=== PATIENT | female | born 1960 | race Two or more races ===

== ENCOUNTER 2017-11-26 22:09 | Emergency (ER) | payer BC ==
[~2017-11-26] VITALS: Ht 152.4 cm; Wt 49.9 kg
[2017-11-26] MEDS ORDERED: TIROSINT13 MCG (22:20)
[2017-11-26] MEDS ORDERED: CLARITIN10 M1 (22:20)
[2017-11-26] MEDS ORDERED: PREZISTA600 MG (22:20)
[2017-11-26] MEDS ORDERED: ISENTRESS400 MG (22:20)
[2017-11-27] MEDS ORDERED: CEFUROXIME500 MG PO (03:24)
[2017-11-27] MEDS ORDERED: URIN D.S. TABL1 EACH PO (03:24)
[2017-11-27] MEDS ORDERED: KETO10TA2 PO (03:33)
== END 2017-11-27 03:48 | disposition home or self-care (01) ==
LOC: ER 22:09
DX: N39.0 Urinary tract infection, site not specified (principal)